=== PATIENT | female | born 1940 | race Caucasian/White ===

== ENCOUNTER → 2017-07-30 19:19 | Emergency (ER) | payer MEDICARE, OTHER ==
[~2017-07-30 19:19] MED LIST: Oxymetazoline 0.05% NASAL SPR* 15 ML BTL LEFT NARE ONE
[2017-07-30 19:25] VITALS: BP 127/69
--- NOTE | 2017-07-30 20:57 | ED ---
Throat Pain/Nasal Congestion - HPI Summary HPI Summary: 77F presents with nose bleed for a couple hours. the bleed keeps stopped and then it starts again. She keeps whipping her nose and picking at it around to EMS but she denies this. She is on blood thinners. She denies any recent infections. She denies any blood dripping down her right nostril or down her throat. it is only her left. She denies any history of nose bleeds. She denies any seasonal allergies. - History of Current Complaint Chief Complaint: EDUpperRespComplaint Time Seen by Provider: 07/30/17 19:37 - Allergies/Home Medications Allergies/Adverse Reactions: Allergies Allergy/AdvReac Type Severity Reaction Status Date / Time Acetaminophen [From Tylenol] Allergy Unknown Unknown Verified 10/14/14 10:40 Reaction Details Ezetimibe [From Vytorin] Allergy Unknown Unknown Verified 10/14/14 10:40 Reaction Details Hydrocodone [From Vicodin] Allergy Unknown Unknown Verified 10/14/14 10:40 Reaction Details Lovastatin Allergy Unknown Unknown Verified 10/14/14 10:40 Reaction Details Simvastatin [From Vytorin] Allergy Unknown Unknown Verified 10/14/14 10:40 Reaction Details Penicillins AdvReac Intermediate Dizziness Verified 10/14/14 10:40 Captopril AdvReac Mild GI Upset Verified 10/14/14 10:40 PMH/Surg Hx/FS Hx/Imm Hx Endocrine/Hematology History: Reports: Hx Anticoagulant Therapy - asa 81 mg, clodiprogel, Hx Diabetes - adult onset DM, Hx Thyroid Disease - hypothyroidism, Hx Anemia Denies: Hx Blood Disorders, Hx Blood Transfusions, Hx Systemic Lupus Erythematosus, Hx Sickle Cell Disease, Hx Unexplained Bleeding Cardiovascular History: Reports: Hx Angina, Hx Angioplasty, Hx Congestive Heart Failure, Hx Coronary Artery Disease - STENTS 3 WKS AGO, Hx Deep Vein Thrombosis , Hx Hypercholesterolemia, Hx Hypertension, Hx Valvular Heart Disease Denies: Hx Aneurysm, Hx Auto Implanted Cardiovert Defib, Hx Cardiac Arrest, Hx Cardiomegaly, Hx Congenital Heart Disease, Hx Hypotension, Hx Pacemaker/ICD, Hx Peripheral Vascular Disease, Hx Rheumatic Fever, Hx Syncope, Other Cardiovascular Problems/Disorders Respiratory History: Reports: Hx Chronic Obstructive Pulmonary Disease (COPD) - USES 2L NC AT NIGHT TIME, Hx Pneumonia - when 17, Hx Pulmonary Edema Denies: Hx Asthma, Hx Cystic Fibrosis, Hx Lung Cancer, Hx Pleural Effusion, Hx Pulmonary Embolism, Hx Seasonal Allergies, Hx Sleep Apnea GI History: Reports: Hx Gastroesophageal Reflux Disease, Hx Gastrointestinal Bleed Denies: Hx Cirrhosis, Hx Crohn's Disease, Hx Diverticulosis, Hx Gall Bladder Disease, Hx Hiatal Hernia, Hx Irritable Bowel, Hx Jaundice, Hx Obstructive Bowel , Hx Ileostomy, Hx Pyloric Stenosis, Hx Ulcer, Other GI Disorders History: Denies: Hx Acute Renal Failure, Hx Benign Prostatic Hyperplasia, Hx Chronic Renal Failure, Hx Dialysis, Hx Kidney Infection, Hx Kidney Stones, Other Problems/Disorders Musculoskeletal History: Denies: Hx Arthritis, Hx Back Problems, Hx Bursitis, Hx Congenital Bone Abnormalities, Hx Fibromyalgia, Hx Gout, Hx Orthopedic Injury, Hx Osteoporosis, Hx Scoliosis, Hx Tendonitis, Other Musculoskeletal History Sensory History: Reports: Hx Contacts or Glasses, Hx Vision Problem Denies: Hx Cataracts, Hx Eye Injury, Hx Eye Prosthesis, Hx Glaucoma, Hx Macular Degeneration, Hx Deafness, Hx Hearing Aid, Hx Hearing Problem, Other Sensory Impairments Opthamlomology History: Reports: Hx Contacts or Glasses, Hx Vision Problem Denies: Hx Cataracts, Hx Eye Injury, Hx Eye Prosthesis, Hx Glaucoma, Hx Macular Degeneration, Other Sensory Impairments Neurological History: Reports: Hx Nerve Disease - diabetic neuropathy, Other Neuro Impairments/Disorders - sciatica Denies: Hx Dementia, Hx Developmental Delay, Hx Headaches, Hx Migraine, Hx Seizures, Hx Spinal Cord Injury, Hx Transient Ischemic Attacks (TIA) Psychiatric History: Denies: Hx Anxiety, Hx Attention Deficit Hyperactivity Disorder, Hx Eating Disorder, Hx Depression, Hx Panic Disorder, Hx Post Traumatic Stress Disorder, Hx Inpatient Treatment, Hx Community Mental Health Tx, Hx Schizophrenia, Hx Bipolar Disorder, Hx of Violent Episodes Against Others, Hx Substance Abuse, Other Psychiatric Issues/Disorders - Cancer History Cancer Type, Location and Year: 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 Hx Chemotherapy: Yes Hx Radiation Therapy: Yes - Surgical History Surgery Procedure, Year, and Place: CABG RPH 2011, Hysterectomy, stents x2 2001 , stent x1 04/08, stents x3 05/09, Hx Anesthesia Reactions: No Infectious Disease History: Yes Infectious Disease History: Denies: Hx Clostridium Difficile, Hx Hepatitis, Hx Human Immunodeficiency Virus (HIV), Hx Shingles, Hx Tuberculosis, Traveled Outside the [place] in Last 30 Days - Family History Known Family History: Positive: Cardiac Disease - Social History Alcohol Use: None Substance Use Type: Reports: None Hx Tobacco Use: Yes Smoking Status (MU): Unknown if Ever Smoked Review of Systems Negative: Fever Positive: Epistaxis Negative: Chest Pain Negative: Shortness Of Breath All Other Systems Reviewed And Are Negative: Yes Physical Exam Triage Information Reviewed: Yes Vital Signs On Initial Exam: Initial Vitals Temp Pulse Resp BP Pulse Ox 97.6 F 80 20 127/69 99 07/30/17 19:23 07/30/17 19:23 07/30/17 19:23 07/30/17 19:23 07/30/17 19:23 Vital Signs Reviewed: Yes Appearance: Positive: Well-Appearing Skin: Positive: Warm, Dry Head/Face: Positive: Normal Head/Face Inspection Eyes: Positive: Normal, EOMI, JUNE, Conjunctiva Clear ENT: Positive: Pharynx normal, TMs normal, Other - nose in left nares, small abrasion seen with no active bleeding Respiratory/Lung Sounds: Positive: Clear to Auscultation, Breath Sounds Present Cardiovascular: Positive: Normal, RRR Diagnostics - Vital Signs Vital Signs Temp Pulse Resp BP Pulse Ox 07/30/17 19:23 97.6 F 80 20 127/69 99 - Laboratory Lab Statement: Any lab studies that have been ordered have been reviewed, and results considered in the medical decision making process. EENT Course/Dx - Course Course Of Treatment: 77F presents with nose bleed for a couple hours. the bleed keeps stopped and then it starts again. She keeps whipping her nose and picking at it around to EMS but she denies this. She is on blood thinners. She denies any recent infections. She denies any blood dripping down her right nostril or down her throat. it is only her left. She denies any history of nose bleeds. She denies any seasonal allergies. on exam patient is actively rubbing nose. small abrasion noted in nose with recent blood but no active bleeding. gave dose of afrin and no bleeding after hour. patient understands and agrees with plan. - Differential Diagnoses Differential Diagnoses: Epistaxis, Sinusitis, URI/Bronchitis - Diagnoses Provider Diagnoses: Epistaxis Discharge - Discharge Plan Condition: Good Disposition: HOME Patient Education Materials: Nosebleed (ED) Referrals: Ab Carter MD [Primary Care Provider] - Additional Instructions: Use humidifier or place bowls of water around room Use afrin one spray if bleed returns Place compression on area 20 mins Do not pick or rub at area If bleed continues after these steps return to ED
== END | disposition home or self-care (01) ==
LOC: ED 19:19
DX: R04.0 Epistaxis (principal); Z79.82 Long term (current) use of aspirin; E03.9 Hypothyroidism, unspecified; E11.9 Type 2 diabetes mellitus without complications; I25.10 Atherosclerotic heart disease of native coronary artery without angina pectoris; E78.00 Pure hypercholesterolemia, unspecified; Z95.1 Presence of aortocoronary bypass graft
CPT/HCPCS: 99281; A9270-GY

== ENCOUNTER 2018-02-19 05:57 | Emergency (ER) | payer MEDICARE, OTHER ==
--- NOTE | 2018-02-19 07:32 | ED ---
Adonis Lund Nikita, scribed for Kaden Hidalgo MD on 02/19/18 at 0624 . 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 EMS stated that the pt meant to take her lantus, but at 0430 this morning, the pt thinks she took 36 units of regular insulin. Initial FS at 0530 was 464; upon arrival to ED, EMS stated that 2nd FS was 248. The patient rates the pain 0/10 in severity. Symptoms aggravated by nothing. Symptoms alleviated by nothing. Patient denies CP and SOB. - History Of Current Complaint Chief Complaint: EDGeneral Hx Obtained From: Patient Onset/Duration: Sudden Onset, Lasting Minutes, Resolved Timing: Minutes Severity Currently: None Aggravating Factor(s): nothing Alleviating Factor(s): nothing Associated Signs And Symptoms: Positive: Other - the pt took too much insulin, denies CP and SOB - Allergies/Home Medications Allergies/Adverse Reactions: Allergies Allergy/AdvReac Type Severity Reaction Status Date / Time acetaminophen [From Tylenol] Allergy Unknown Verified 02/19/18 07:14 Reaction Details captopril Allergy GI Upset Verified 02/19/18 07:14 ezetimibe [From Vytorin] Allergy Unknown Verified 02/19/18 07:14 Reaction Details hydrocodone [From Vicodin] Allergy Unknown Verified 02/19/18 07:14 Reaction Details lovastatin Allergy Unknown Verified 02/19/18 07:14 Reaction Details simvastatin [From Vytorin] Allergy Unknown Verified 02/19/18 07:14 Reaction Details PMH/Surg Hx/FS Hx/Imm Hx Endocrine/Hematology History: Reports: Hx Anticoagulant Therapy - asa 81 mg, clodiprogel, Hx Diabetes - adult onset DM, Hx Thyroid Disease - hypothyroidism, Hx Anemia Denies: Hx Blood Disorders, Hx Blood Transfusions, Hx Systemic Lupus Erythematosus, Hx Sickle Cell Disease, Hx Unexplained Bleeding Cardiovascular History: Reports: Hx Angina, Hx Angioplasty, Hx Congestive Heart Failure, Hx Coronary Artery Disease - STENTS 3 WKS AGO, Hx Deep Vein Thrombosis , Hx Hypercholesterolemia, Hx Hypertension, Hx Valvular Heart Disease Denies: Hx Aneurysm, Hx Auto Implanted Cardiovert Defib, Hx Cardiac Arrest, Hx Cardiomegaly, Hx Congenital Heart Disease, Hx Hypotension, Hx Pacemaker/ICD, Hx Peripheral Vascular Disease, Hx Rheumatic Fever, Hx Syncope, Other Cardiovascular Problems/Disorders Respiratory History: Reports: Hx Chronic Obstructive Pulmonary Disease (COPD) - USES 2L NC AT NIGHT TIME, Hx Pneumonia - when 17, Hx Pulmonary Edema Denies: Hx Asthma, Hx Cystic Fibrosis, Hx Lung Cancer, Hx Pleural Effusion, Hx Pulmonary Embolism, Hx Seasonal Allergies, Hx Sleep Apnea GI History: Reports: Hx Gastroesophageal Reflux Disease, Hx Gastrointestinal Bleed Denies: Hx Cirrhosis, Hx Crohn's Disease, Hx Diverticulosis, Hx Gall Bladder Disease, Hx Hiatal Hernia, Hx Irritable Bowel, Hx Jaundice, Hx Obstructive Bowel , Hx Ileostomy, Hx Pyloric Stenosis, Hx Ulcer, Other GI Disorders History: Denies: Hx Acute Renal Failure, Hx Benign Prostatic Hyperplasia, Hx Chronic Renal Failure, Hx Dialysis, Hx Kidney Infection, Hx Kidney Stones, Other Problems/Disorders Musculoskeletal History: Denies: Hx Arthritis, Hx Back Problems, Hx Bursitis, Hx Congenital Bone Abnormalities, Hx Fibromyalgia, Hx Gout, Hx Orthopedic Injury, Hx Osteoporosis, Hx Scoliosis, Hx Tendonitis, Other Musculoskeletal History Sensory History: Reports: Hx Contacts or Glasses, Hx Vision Problem Denies: Hx Cataracts, Hx Eye Injury, Hx Eye Prosthesis, Hx Glaucoma, Hx Macular Degeneration, Hx Deafness, Hx Hearing Aid, Hx Hearing Problem, Other Sensory Impairments Opthamlomology History: Reports: Hx Contacts or Glasses, Hx Vision Problem Denies: Hx Cataracts, Hx Eye Injury, Hx Eye Prosthesis, Hx Glaucoma, Hx Macular Degeneration, Other Sensory Impairments Neurological History: Reports: Hx Nerve Disease - diabetic neuropathy, Other Neuro Impairments/Disorders - sciatica Denies: Hx Dementia, Hx Developmental Delay, Hx Headaches, Hx Migraine, Hx Seizures, Hx Spinal Cord Injury, Hx Transient Ischemic Attacks (TIA) Psychiatric History: Denies: Hx Anxiety, Hx Attention Deficit Hyperactivity Disorder, Hx Eating Disorder, Hx Depression, Hx Panic Disorder, Hx Post Traumatic Stress Disorder, Hx Inpatient Treatment, Hx Community Mental Health Tx, Hx Schizophrenia, Hx Bipolar Disorder, Hx of Violent Episodes Against Others, Hx Substance Abuse, Other Psychiatric Issues/Disorders - Cancer History Cancer Type, Location and Year: 2001: Non Hodgkins Lymphoma Hx Chemotherapy: Yes Hx Radiation Therapy: Yes - Surgical History Surgery Procedure, Year, and Place: CABG RPH 2011, Hysterectomy, stents x2 2001 , stent x1 04/08, stents x3 05/09, Hx Anesthesia Reactions: No Infectious Disease History: No Infectious Disease History: Denies: Hx Clostridium Difficile, Hx Hepatitis, Hx Human Immunodeficiency Virus (HIV), Hx Shingles, Hx Tuberculosis, Traveled Outside the [place] in Last 30 Days - Family History Known Family History: Positive: Cardiac Disease - Social History Alcohol Use: None Substance Use Type: Reports: None Hx Tobacco Use: Yes Smoking Status (MU): Unknown if Ever Smoked Review of Systems Positive: Other - took too much insulin this morning Negative: Chest Pain Negative: Shortness Of Breath All Other Systems Reviewed And Are Negative: Yes Physical Exam - Summary Physical Exam Summary: Appearance: Well-appearing, Well-nourished Skin: Warm Eyes: Normal ENT: Normal Neck: Supple, nontender Respiratory: Clear to auscultation Cardiovascular: Normal S1, S2. No murmurs. Normal distal pulses in tibial and radial bilaterally. Abdomen: Soft, nontender Musculoskeletal: Normal, Strength/ROM Intact Neurological: Normal, A&Ox3 Psychiatric: Normal General: No acute distress Triage Information Reviewed: Yes Vital Signs On Initial Exam: Initial Vitals Temp Pulse Resp BP Pulse Ox 97.7 F 78 18 129/72 96 02/19/18 06:00 02/19/18 06:00 02/19/18 06:00 02/19/18 06:00 02/19/18 06:00 Vital Signs Reviewed: Yes Diagnostics - Vital Signs Vital Signs Temp Pulse Resp BP Pulse Ox 02/19/18 06:00 97.7 F 78 18 129/72 96 - Laboratory Lab Statement: Any lab studies that have been ordered have been reviewed, and results considered in the medical decision making process. Complex Multi-Symp Course/Dx Assessment/Plan: initial fingerstick 194 at 630am, which is approx 1.5 hrs after accidental injection. Serial fingersticks pending, pt remains asymptomatic at this time and will likely be cleared for discharge after serial fingersticks over 3-4 hours and PO tolerance. Pt care signed out to AM attending Dr. Oshea. - Diagnoses Provider Diagnoses: Accidental medication error Discharge - Sign-Out/Discharge Documenting (check all that apply): Sign-Out Patient Signing out patient TO: Shabbir Oshea - Discharge Plan Condition: Stable Referrals: Ab Carter MD [Primary Care Provider] - - Billing Disposition and Condition Condition: STABLE The documentation as recorded by the Adonis torres Nikita accurately reflects the service I personally performed and the decisions made by me, Kaden Hidalgo MD.
--- NOTE | 2018-02-19 09:33 | ED ---
Andreas Lund Thomas, scribed for Shabbir Oshea MD on 02/19/18 at 0706 . Progress - Progress Note Progress Note: The patient is a sign out from Dr. Hidalgo at shift change, pending re-evaluation. Course/Dx - Course Course Of Treatment: Patient observed in ED for 5 hours after she took the regular insulin. She ate in the ED and did not become hyoglycemic. - Diagnoses Provider Diagnoses: Accidental medication error Discharge - Sign-Out/Discharge Documenting (check all that apply): Discharge, Receiving Sign-Out Receiving patient FROM: Kaden Hidalgo - Discharge Plan Condition: Stable Disposition: HOME Patient Education Materials: Hypoglycemia in a Person with Diabetes (ED) Referrals: Ab Carter MD [Primary Care Provider] - Additional Instructions: FOLLOW UP WITH YOUR DOCTOR. RETURN TO THE EMERGENCY DEPARTMENT FOR ANY WORSENING OF YOUR CONDITION OR QUESTIONS OR CONCERNS. YOUR BLOOD PRESSURE WAS ELEVATED TODAY; FOLLOW UP WITH YOUR PRIMARY CARE DOCTOR WITHIN ONE WEEK. - Billing Disposition and Condition Condition: STABLE Disposition: HOME The documentation as recorded by the Andreas torres Thomas accurately reflects the service I personally performed and the decisions made by me, Shabbir Oshea MD.
[2018-02-19 10:08] VITALS: BP 116/76
== END 2018-02-19 10:07 | disposition home or self-care (01) ==
LOC: ED 05:57
DX: E11.649 Type 2 diabetes mellitus with hypoglycemia without coma (principal); Z79.4 Long term (current) use of insulin; I25.10 Atherosclerotic heart disease of native coronary artery without angina pectoris; Z87.09 Personal history of other diseases of the respiratory system
CPT/HCPCS: 99282

== ENCOUNTER 2018-10-23 00:05 | Inpatient (IN) | payer MEDICARE, OTHER ==
--- NOTE | 2018-10-23 00:18 | ED ---
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 She states she is getting weaker every day. Pt lives at [facility]. Patient was last seen at [facility] on 10/06/18 and released on 10/22/18. - History of Current Complaint Chief Complaint: EDShortnessOfBreath Stated Complaint: SOB Time Seen by Provider: 10/23/18 00:15 Hx Obtained From: Patient Onset/Duration: Sudden Onset, Still Present Pain Intensity: 0 - Allergy/Home Medications Allergies/Adverse Reactions: Allergies Allergy/AdvReac Type Severity Reaction Status Date / Time acetaminophen [From Tylenol] Allergy GI Upset Verified 10/23/18 00:23 captopril Allergy GI Upset Verified 10/23/18 00:23 ezetimibe [From Vytorin] Allergy Unknown Verified 10/23/18 00:23 Reaction Details hydrocodone [From Vicodin] Allergy Unknown Verified 10/23/18 00:23 Reaction Details lovastatin Allergy Unknown Verified 10/23/18 00:23 Reaction Details morphine Allergy Altered Verified 10/23/18 00:50 Mental Status simvastatin [From Vytorin] Allergy Unknown Verified 10/23/18 00:23 Reaction Details PMH/Surg Hx/FS Hx/Imm Hx Previously Healthy: No Endocrine/Hematology History: Reports: Hx Anticoagulant Therapy - asa 81 mg, clodiprogel, Hx Diabetes - DM II, Hx Thyroid Disease - hypothyroidism, Hx Anemia Denies: Hx Blood Disorders, Hx Blood Transfusions, Hx Systemic Lupus Erythematosus, Hx Sickle Cell Disease, Hx Unexplained Bleeding Cardiovascular History: Reports: Hx Angina, Hx Angioplasty, Hx Congestive Heart Failure, Hx Coronary Artery Disease - STENTS 3 WKS AGO, Hx Deep Vein Thrombosis , Hx Hypercholesterolemia, Hx Hypertension, Hx Valvular Heart Disease Denies: Hx Aneurysm, Hx Auto Implanted Cardiovert Defib, Hx Cardiac Arrest, Hx Cardiomegaly, Hx Congenital Heart Disease, Hx Hypotension, Hx Pacemaker/ICD, Hx Peripheral Vascular Disease, Hx Rheumatic Fever, Hx Syncope, Other Cardiovascular Problems/Disorders Respiratory History: Reports: Hx Chronic Obstructive Pulmonary Disease (COPD) - USES 2L NC AT NIGHT TIME, Hx Pneumonia - when 17, Hx Pulmonary Edema Denies: Hx Asthma, Hx Cystic Fibrosis, Hx Lung Cancer, Hx Pleural Effusion, Hx Pulmonary Embolism, Hx Seasonal Allergies, Hx Sleep Apnea GI History: Reports: Hx Gastroesophageal Reflux Disease, Hx Gastrointestinal Bleed Denies: Hx Cirrhosis, Hx Crohn's Disease, Hx Diverticulosis, Hx Gall Bladder Disease, Hx Hiatal Hernia, Hx Irritable Bowel, Hx Jaundice, Hx Obstructive Bowel , Hx Ileostomy, Hx Pyloric Stenosis, Hx Ulcer, Other GI Disorders History: Denies: Hx Acute Renal Failure, Hx Benign Prostatic Hyperplasia, Hx Chronic Renal Failure, Hx Dialysis, Hx Kidney Infection, Hx Kidney Stones, Other Problems/Disorders Musculoskeletal History: Denies: Hx Arthritis, Hx Back Problems, Hx Bursitis, Hx Congenital Bone Abnormalities, Hx Fibromyalgia, Hx Gout, Hx Orthopedic Injury, Hx Osteoporosis, Hx Scoliosis, Hx Tendonitis, Other Musculoskeletal History Sensory History: Reports: Hx Contacts or Glasses, Hx Vision Problem Denies: Hx Cataracts, Hx Eye Injury, Hx Eye Prosthesis, Hx Glaucoma, Hx Macular Degeneration, Hx Deafness, Hx Hearing Aid, Hx Hearing Problem, Other Sensory Impairments Opthamlomology History: Reports: Hx Contacts or Glasses, Hx Vision Problem Denies: Hx Cataracts, Hx Eye Injury, Hx Eye Prosthesis, Hx Glaucoma, Hx Macular Degeneration, Other Sensory Impairments Neurological History: Reports: Hx Nerve Disease - diabetic neuropathy, Other Neuro Impairments/Disorders - sciatica Denies: Hx Dementia, Hx Developmental Delay, Hx Headaches, Hx Migraine, Hx Seizures, Hx Spinal Cord Injury, Hx Transient Ischemic Attacks (TIA) Psychiatric History: Denies: Hx Anxiety, Hx Attention Deficit Hyperactivity Disorder, Hx Eating Disorder, Hx Depression, Hx Panic Disorder, Hx Post Traumatic Stress Disorder, Hx Inpatient Treatment, Hx Community Mental Health Tx, Hx Schizophrenia, Hx Bipolar Disorder, Hx of Violent Episodes Against Others, Hx Substance Abuse, Other Psychiatric Issues/Disorders - Cancer History Cancer Type, Location and Year: 2001: Non Hodgkins Lymphoma Hx Chemotherapy: Yes Hx Radiation Therapy: Yes - Surgical History Surgery Procedure, Year, and Place: CABG RPH 2011, Hysterectomy, stents x2 2001 , stent x1 04/08, stents x3 05/09, Hx Anesthesia Reactions: No Infectious Disease History: No Infectious Disease History: Denies: Hx Clostridium Difficile, Hx Hepatitis, Hx Human Immunodeficiency Virus (HIV), Hx Shingles, Hx Tuberculosis, Traveled Outside the [place] in Last 30 Days - Family History Known Family History: Positive: Cardiac Disease - Social History Occupation: Retired Lives: [facility] Alcohol Use: None Hx Substance Use: No Substance Use Type: Reports: None Hx Tobacco Use: Yes Smoking Status (MU): Unknown if Ever Smoked Review of Systems Negative: Fever Positive: Shortness Of Breath Positive: Weakness All Other Systems Reviewed And Are Negative: Yes Physical Exam - Summary Physical Exam Summary: Appearance: Well-appearing, Well-nourished, lying in bed comfortably. Morbid obesity. Diffuse anasarca. Skin: Warm, dry, no obvious rash, frail skin with multiple contusions Eyes: sclera anicteric, no conjunctival pallor ENT: mucous membranes moist, pharynx appears normal Neck: Supple, nontender Respiratory: Crackles, mild respiratory distress Cardiovascular: Normal S1, S2. No murmurs. Normal distal pulses in tibial and radial bilaterally. Abdomen: Soft, nontender, normal active bowel sounds present Musculoskeletal: Normal, Strength/ROM Intact Neurological: A&Ox3, awake and alert, mentation is normal, speech is fluent and appropriate Psychiatric: affect is normal, does not appear anxious or depressed Triage Information Reviewed: Yes Vital Signs On Initial Exam: Initial Vitals Temp Pulse Resp BP Pulse Ox 98.0 F 80 30 116/73 97 10/23/18 00:12 10/23/18 00:12 10/23/18 00:12 10/23/18 00:12 10/23/18 00:12 Vital Signs Reviewed: Yes Diagnostics - Vital Signs Vital Signs Temp Pulse Resp BP Pulse Ox 10/23/18 00:12 98.0 F 80 30 116/73 97 - Laboratory Result Diagrams: 10/23/18 00:36 10/23/18 00:36 Lab Statement: Any lab studies that have been ordered have been reviewed, and results considered in the medical decision making process. - Radiology CXR Radiology Interpretation Completed By: ED Physician Summary of Radiographic Findings: Mild interstitial edema, no change from prior. - EKG 0038 Cardiac Rate: NL - 80bpm Summary of EKG Findings: Atrial sense ventricular paced complexes. No further analysis attempted due to paced rhythm. 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 She states she is getting weaker every day. Pt lives at [facility]. Patient was last seen at [facility] on and released on 10/22/18. EKG shows atrial sense ventricular-paced complexes at 80 bpm. CXR shows mild interstitial edema that is unchanged from prior. Consulted with Dr. Bush, hospitalist, who will admit patient. - Diagnoses Provider Diagnoses: Chronic respiratory failure, End stage congestive heart failure - Physician Notifications Discussed Care Of Patient With: Sandie Bush - hospitalist Time Discussed With Above Provider: 02:33 Instructed by Provider To: Admit As Inpatient Discharge - Sign-Out/Discharge Documenting (check all that apply): Patient Departure - ADM - Discharge Plan Condition: Guarded Disposition: ADMITTED TO [facility] - Billing Disposition and Condition Condition: GUARDED Disposition: Admitted to [facility] - Attestation Statements Document Initiated by Scribe: Yes Documenting Scribe: Rosalio Justice Provider For Whom Kirsten is Documenting (Include Credential): Dr. Darin Meraz MD Scribe Attestation: Rosalio Lund, scribed for Dr. Darin Meraz MD on 10/23/18 at 0511. Scribe Documentation Reviewed: Yes Provider Attestation: The documentation as recorded by the Rosalio torres accurately reflects the service I personally performed and the decisions made by me, Dr. Darin Meraz MD
[2018-10-23] MEDS ORDERED: Morphine VIAL* 4 MG/ML VIAL (1 ml vial) IV ONE (00:25)
[2018-10-23] MEDS ORDERED: Nitroglycerin 2% OINT* 1 GM PAK TOPICAL ONE (00:25)
[2018-10-23 00:44] LABS: ABS Basophils 0.1 10^3/ul (0-0.2); ABS Eosinophils 0.2 10^3/ul (0-0.6); ABS Lymphocytes 0.6 10^3/ul (1.0-4.8); ABS Monocytes 0.8 10^3/ul (0-0.8); ABS Neutrophils 7.6 10^3/ul (1.5-7.7); ABS Nucleated RBC 0 10^3/ul; Eosinophil % 2.5 %; Hematocrit 33 % (35-47); Hemoglobin 10.6 g/dl (12.0-16.0); Lymphocyte % 6.8 %; Mean Corpuscular HGB Conc 32 g/dl (31-36); Mean Corpuscular Hemoglobin 29 pg (27-31); Mean Corpuscular Volume 91 fL (80-97); Mean Platelet Volume 7.6 fL (7.4-10.4); Nucleated Red Blood Cells % 0.1; Platelet Count 283 10^3/ul (150-450); Red Blood Count 3.67 10^6/ul (4.00-5.40); Red Cell Distribution Width 17 % (10.5-15); White Blood Count 9.3 10^3/ul (3.5-10.8)
[2018-10-23 01:03] LABS: EGFR Non-African American 30.4 (>60)
[2018-10-23] MEDS ORDERED: Furosemide IV* 10 MG/ML VIAL (40 MG) IV ONE (01:12)
[2018-10-23] MEDS ORDERED: Senna TAB PO PRN (02:56)
[2018-10-23] MEDS ORDERED: Al Hydrox/Mg Hydrox/Simet LIQ* 30 ML UDC PO PRN (02:56)
[2018-10-23] MEDS ORDERED: Docusate CAP* 100 MG PO PRN (02:56)
[2018-10-23] MEDS ORDERED: Ondansetron INJ* 2 MG/ML VIAL IV PRN (02:56)
[2018-10-23] MEDS ORDERED: Dextrose 50% Syringe 50 ML* 25 GM/50 ML SYRINGE IV PUSH PRN (03:21)
[2018-10-23] MEDS ORDERED: Saline NASAL SPRAY 0.65%* BTL BOTH NARES PRN (03:21)
[2018-10-23] MEDS: Levothyroxine TAB* 75 MCG TAB PO SCH (05:33)
[2018-10-23] MEDS: Omeprazole CAP* 20 MG PO SCH (05:33)
[2018-10-23] MEDS: Insulin LISPRO* 1 UNITS UNIT SUBCUT SCH ×2 (10:53→12:04)
--- NOTE | 2018-10-23 13:12 | PN ---
Subjective Date of Service: 10/23/18 Interval History: HOSPITALIST PROGRESS NOTE Patient seen and examined at bedside. Care reviewed and d/w Stanley June RN. She feels a little better today. Chest pressure is resolved, but she still feels dyspneic with minimal exertion, even on Vaportherm. Family History: Unchanged from Admission Social History: Unchanged from Admission Past Medical History: Unchanged from Admission Objective Active Medications: Al Hydrox/Mg Hydrox/Simethicone (Maalox Plus*) 30 ml PO Q6H PRN PRN Reason: INDIGESTION Dextrose (D50w Syringe 50 Ml*) 12.5 gm IV PUSH .FOR FS < 60 - SS PRN PRN Reason: FS < 60 Docusate Sodium (Colace Cap*) 100 mg PO BID PRN PRN Reason: CONSTIPATION Levothyroxine Sodium (Synthroid Tab*) 75 mcg PO DAILY@0600 [facility] Last Admin: 10/23/18 05:33 Dose: 75 mcg Morphine Sulfate (Morphine Oral Concentrate*) 5 mg SL Q2H PRN PRN Reason: Pain/Dyspnea RR>24 Omeprazole (Prilosec Cap*) 20 mg PO DAILY@0600 [facility] Last Admin: 10/23/18 05:33 Dose: 20 mg Ondansetron HCl (Zofran Inj*) 4 mg IV Q4H PRN PRN Reason: NAUSEA/VOMITING Senna (Senokot Tab*) 1 tab PO BID PRN PRN Reason: CONSTIPATION Sodium Chloride (Sodium Chloride 0.65% Nasal [place]*) 1 spray BOTH NARES Q4H PRN PRN Reason: dryness Vital Signs - 8 hr 10/23/18 10/23/18 10/23/18 06:00 06:01 06:29 Temperature Pulse Rate 80 80 80 Respiratory 18 19 20 Rate Blood Pressure 94/51 105/53 (mmHg) O2 Sat by Pulse 98 99 98 Oximetry 10/23/18 10/23/18 10/23/18 07:00 07:01 08:00 Temperature 96.5 F Pulse Rate 80 80 80 Respiratory 17 23 22 Rate Blood Pressure 108/57 108/63 (mmHg) O2 Sat by Pulse 99 98 100 Oximetry 10/23/18 10/23/18 10/23/18 08:01 09:00 09:01 Temperature Pulse Rate 80 80 80 Respiratory 22 24 21 Rate Blood Pressure 100/55 (mmHg) O2 Sat by Pulse 99 99 98 Oximetry 10/23/18 10/23/18 10/23/18 10:00 10:01 11:00 Temperature Pulse Rate 80 80 80 Respiratory 22 18 32 Rate Blood Pressure 100/52 96/74 (mmHg) O2 Sat by Pulse 98 98 99 Oximetry 10/23/18 12:00 Temperature 96.8 F Pulse Rate Respiratory Rate Blood Pressure (mmHg) O2 Sat by Pulse Oximetry Oxygen Devices in Use Now: High Flow Heated Nasal Cannula - FiO2 35% Appearance: Elderly lady lying in bed in NAD Eyes: No Scleral Icterus Ears/Nose/Mouth/Throat: Mucous Membranes Moist Neck: Trachea Midline Respiratory: Symmetrical Chest Expansion and Respiratory Effort, - - BS+ bilaterally with bibasilar crackles Cardiovascular: RRR - Normal S1 and S2 Extremities: - - Bilateral LE edema Neurological: Alert and Oriented x 3, NL Muscle Strength and Tone Result Diagrams: 10/23/18 00:36 10/23/18 00:36 Assess/Plan/Problems-Billing Assessment: Mrs Alexis is 78yo F with PMH of type 2 DM, CAD s/p CABG, s/p ICD, HTN, GERD, Non Hodgkin's lymphoma s/p chemo and radiation, hypothyroidism, HLD, obesity, moderate to severe pulmonary HTN, recent admission for acute systolic CHF exacerbation, who returns to ED <24h after discharge with worsening dyspnea. - Patient Problems (1) Acute on chronic respiratory failure with hypoxemia Comment: - Secondary to end stage CHF. - Now requiring Vapotherm. (2) Acute on chronic systolic (congestive) heart failure Comment: - Severe CMP with EF 20-25%. - End stage CHF - she stayed in the hospital for 2 weeks for optmization and decompensated in less than 24h after discharge. - She does not want to pursue any more aggressive therapies. - Plan is for Hospice at the [facility] residence. - Continue comfort care only measures. - Appreciate cardiology consult. - Plan to continue aggressive diuresis with metolazone and toresmide now. - Continue to wrap LE to mobilize fluid and elevate as much as possible - Continue digoxin. Continue lisinopril, recommend resuming metoprolol when BP will allow. (3) DVT prophylaxis Comment: - Goal now is for comfort only. (4) DNR (do not resuscitate) Status and Disposition: Inpatient for comfort care. Awaiting bed at the [facility]. Will transfer out of ICU if able to titrate supplemental O2 down.
[2018-10-23] MEDS ORDERED: Atropine 1% (ORAL/SL)* 15 ML BTL SL PRN (13:17)
[2018-10-23] MEDS ORDERED: LORazepam TAB(*) 0.5 MG PO PRN (13:17)
[2018-10-23] MEDS: Morphine ORAL CONCENTRATE* 5 MG/0.25 ML ORAL.SYRIN SL PRN ×4 (13:23→23:44)
--- NOTE | 2018-10-23 13:51 | HP ---
CC: [facility].* HISTORY AND PHYSICAL: DATE OF ADMISSION: 10/23/18. TIME OF EVALUATION: 0300. PRIMARY CARE PHYSICIAN: [facility]. CHIEF COMPLAINT: Shortness of breath. HISTORY OF PRESENT ILLNESS: This is a 78-year-old female with a past medical history of congestive heart failure with an EF of 20%, a oaflyrql-oq-poigzg pulmonary hypertension and CKD, who presents to the emergency room from [facility] after just being discharged on the for a prolonged hospitalization secondary to lower extremity cellulitis with chronic lower extremity edema and acute on chronic congestive heart failure. The patient states her legs were sore; however, her breathing had been better when she was discharged back to the correction on the 22 of October. The patient was complaining of shortness of breath. She was found to be tachypneic and hypoxic and she was brought to the emergency room for further evaluation. The patient denies any chest pain. She states her legs are sore. No cough. No URI symptoms. No nausea, vomiting. No diarrhea. No abdominal pain. She states she has had an increase in urinary frequency as she states they have been trying to take the fluid off. She has been concerned about getting weaker and weaker and worsening respiratory distress. We talked in length about end-of-life decision making. She states she does not want to go back to [facility] because they were mean to her and no one would check her blood sugar when she asked them to. We discussed her congestive heart failure, her pulmonary hypertension, and renal failure and she states that she is ready to pass away. We discussed her MOLST form and she wishes to be a DNR/DNI. We discussed going to the hospice residence, that is an option for her and she is interested in going there, but she would like to wait until the morning, so that she can say goodbye to her son. Her son just flown from [place] and she wants to say goodbye to her friends before becoming complete comfort measures only. In the emergency room, the patient had labs and imaging. She was found to be tachypneic. She was given Lasix 40 mg and an inch nitro paste and referred to the hospitalist service for further evaluation. PAST MEDICAL HISTORY: 1. Prolonged admission from October 06 to October 22 for cellulitis and QT compensated congestive heart failure. 2. Chronic lower extremity edema. 3. Morbid obesity. 4. Chronic systolic congestive heart failure, EF 20% to 25%. 5. Wcrlgosh-jq-puqemv pulmonary hypertension. 6. Type 2 diabetes. 7. History of coronary artery disease status post coronary artery bypass graft , status post AICD and pacemaker placement. 8. Hypertension. 9. GERD. 10. History of non-Hodgkin's lymphoma, status post radiation chemotherapy. 11. Hypothyroidism. 12. Hyperlipidemia. 13. CKD, stage 3. MEDICATIONS: On discharge: 1. Ticagrelor 90 mg p.o. b.i.d. 2. Nasal saline spray q.2 hours as needed. 3. Nitro sublingual q.5 minutes as needed. 4. Magnesium oxide 400 mg p.o. daily. 5. Levothyroxine 25 mcg daily. 6. Calcium carbonate with vitamin D one tablet p.o. daily. 7. Atorvastatin 80 mg daily. 8. Aspirin 81 mg daily. 9. Warfarin 1 mg alternating with 0.5 mg every other day. 10. Torsemide 20 mg p.o. daily. 11. Pantoprazole 40 mg daily. 12. Metolazone 5 mg daily. 13. Lisinopril 2.5 mg daily. 14. Lispro q.a.c. and Lantus 6 units at bedtime. 15. Digoxin 0.125 mg p.o. every other day. ALLERGIES: ACETAMINOPHEN, CAPTOPRIL, EZETIMIBE, HYDROCODONE, LOVASTATIN, MORPHINE, and SIMVASTATIN. FAMILY HISTORY: Reviewed and noncontributory. SOCIAL HISTORY: The patent has been residing at [facility]. She is bedbound. Her son is also a resident at [facility] who has Down syndrome. Her other son, Carlitos is her healthcare proxy, just flown from [place]. Quit smoking 7 years ago. No alcohol use. No illicit drug use. Code status, we will update her MOLST form to confirm she is a DNR/DNI. REVIEW OF SYSTEMS: A 14-point of review of systems as mentioned in the HPI, otherwise negative. PHYSICAL EXAMINATION GENERAL: The patient is tachypneic, ill appearing. VITALS: Temp 98, pulse rate 80, respiratory rate 36, oxygen saturation 99% on 4 L, blood pressure 95 /61. HEENT: Head normocephalic. Pupils are equal and reactive. Anicteric. Oropharynx: Mucous membranes are dry. NECK: Supple. No adenopathy. RESPIRATORY: Poor aeration. Bilateral rales. Tachypnea. Increased work of breathing. CARDIAC: Regular rate and rhythm. Soft systolic murmur heard throughout. ABDOMEN: Soft, nontender, and nondistended. EXTREMITIES: +2 pretibial edema. Lower leg erythema with bandages on her lower extremities, distal pulses. NEUROLOGIC: Alert and oriented x3. No gross focal neurological deficits. DIAGNOSTIC STUDIES/LAB DATA: White count 9.3, hemoglobin 10.6, hematocrit 33, platelets 283. INR on 10/22 was 2.07. Sodium 135, potassium 5.3, chloride 95, bicarb 37, BUN 70, creatinine 1.63, glucose 176. Troponin 0.06. Albumin is 2.8. Radiographic data shows mild pulmonary interstitial markings, slight improvement from prior chest x-ray. EKG shows atrial sensed, deep paced complexes. ASSESSMENT/PLAN: This is a 78-year-old female with multiple comorbidities including chronic systolic heart failure with an ejection fraction of 20, moderate- to-severe pulmonary hypertension and worsening chronic kidney disease , who presents to the emergency room after being discharged for 1 day to [facility] with respiratory distress. 1. Acute hypoxic respiratory failure. Assessment: This is likely multifactorial. I do suspect she has been overdiuresed based on her labs and her physical exam. This is likely secondary to her worsening pulmonary hypertension. Also on differential is a PE. I discussed with her at length her code status and her grim prognosis with her multiple comorbidities that she is eligible for hospice and her life expectancy is likely less than 1 month and concerned that she may not survive to discharge. The patient is interested in comfort care measures. She would like to go to the hospice residence. She does not want to return to [facility] as they were mean to her. She does not tolerate morphine as this makes her crazy. So, this would not be a good option for air hunger at this point. We discussed putting her on high flow until the morning until she is able to say goodbye to her family and see her son and discuss discharge to the hospice residence if she is a good candidate and they have beds available. Plan: We will place her in the ICU on high flow. We will place a social work consult. I did contact Dr. Sylvester regarding possible placement to the residence. I feel that she is overdiuresed, going to hold her torsemide and metolazone at this time. We will also continue to hold her anticoagulation and her antiplatelet agent at this time as well as her digoxin and her atorvastatin and lisinopril. Discussed that they will need to contact her [employer] to have this turned off. She was not yet ready to have the magnet placed this evening. 2. Acute on chronic CKD and worsening renal failure likely in the setting of being overdiuresed. 3. Diabetes. We will place her on a Lispro sliding scale. 4. Hypothyroidism. We will resume her Synthroid. 5. GERD. We will resume her pantoprazole. 6. Fluids, electrolytes, and nutrition. I placed her on a regular diet. 7. DVT prophylaxis. The patient scores high risk. This is in the setting of comfort care measures. We will hold off on anticoagulation and she had an INR of 2 from her Coumadin on the . 8. Code status. DNR/DNI. MOLST form will be completed. PATIENT TIME: Greater than 60 minutes was spent doing the history and physical , a lifetime of critical care, end-of-life decision making, and more than half of the time was spent in direct patient contact. [id number]/CPS #: [id number] ENRIQUE
--- NOTE | 2018-10-24 01:58 | PN ---
Progress Note - Progress Note Date of Service: 10/24/18 Note: Paged because patient states she no longer wants to go to residence. She is falling asleep during our encounter. Reminded her of our conversation. She states she wants everything to be natural. I discussed the residence would be the most natural peaceful way to . She then became agreeable. Concern the morphine is making her confused. She is not tachypneic at this time and appears comfortable. Will d/c morphine for now.
[2018-10-24] MEDS: Levothyroxine TAB* 75 MCG TAB PO SCH (06:15)
[2018-10-24] MEDS: Omeprazole CAP* 20 MG PO SCH (06:15)
[2018-10-24 08:07] VITALS: BP 147/106
--- NOTE | 2018-10-24 14:40 | DS ---
CC: Dr. Carter * DISCHARGE SUMMARY: DATE OF ADMISSION: 10/23/18 DATE OF DISCHARGE: 10/24/18 PRIMARY CARE PROVIDER: Dr. Carter. DISCHARGE DIAGNOSIS: End-stage congestive heart failure. SECONDARY DIAGNOSES: 1. Systolic congestive heart failure with ejection fraction 20% to 25%. 2. Morbid obesity. 3. Ufyrdzgw-mj-prvqfo pulmonary hypertension. 4. Type 2 diabetes. 5. Coronary artery disease status post coronary artery bypass grafting, status post ICD/pacer placement. 6. Hypertension. 7. Gastroesophageal reflux disease. 8. History of non-Hodgkin's lymphoma status post radiation chemo. 9. Hypothyroidism. 10. Hyperlipidemia. 11. Chronic kidney disease stage 3. MEDICATION LIST: 1. Maalox 30 mL p.o. q.6 hours p.r.n. indigestion. 2. Atropine 1% 2 drops sublingual q.12 hours p.r.n. terminal secretions. 3. Colace 100 mg p.o. b.i.d. p.r.n. constipation. 4. Levothyroxine 75 mcg p.o. daily. 5. Lorazepam 0.5 mg p.o. q.4 hours p.r.n. anxiety. 6. Morphine oral concentrate 5 mg sublingual q.1 hour p.r.n. pain, tachypnea greater than 24 breaths per minute. 7. Omeprazole 20 mg p.o. daily. HOSPITAL COURSE: Mrs. High is a 78-year-old lady with a past medical history as stated above who had a prolonged hospital [place] [facility] [place] to 10/22/18 with acute on chronic systolic congestive heart failure and lower extremity cellulitis. The patient was discharged to [facility] and unfortunately returned to the emergency room less than 24 hours later with complaints of shortness of breath. For more details about her presentation, I refer you to her history and physical. Initially, she required Vapotherm and was admitted to intensive care unit. After discussions about code status and her growing prognosis with multiple comorbidities, the patient was interested in comfort care measures and arrangements were made for her to be discharged to the [facility] on . At this time, the patient is requiring 10 L of oxygen. Her medication list was edited to keep only medications that would add to her comfort and her diet has been liberalized. The patient will be discharged to [facility] today. PHYSICAL EXAMINATION: Vital Signs: Temperature 96.7, heart rate is 80, respiratory rate is 25, oxygen saturation is 100% on 10 L, blood pressure is 106 /61. General: The patient is a pleasant elderly lady, lying in bed, in no acute distress. CVS: Normal S1, S2. Regular rate and rhythm. Chest: Breath sounds present bilaterally with bibasilar crackles. Extremities: Bilateral lower extremity edema. Neuro: She is alert and oriented x3, able to move all 4 extremities. DIET: Regular diet for comfort. ACTIVITY: As tolerated. [facility] Please keep in mind, this is a summarized version of this patient's hospital stay. If you need more information, please feel free to call me at [phone] or please obtain the full medical records. TIME SPENT: Approximately 45 minutes was spent to complete this discharge. [id number]/CPS #: [id number] ENRIQUE
== END 2018-10-24 10:20 | disposition hospice, inpatient (51) | DRG 291 ==
LOC: ED 00:05 → ICU 02:56 → MED 20:26
PROVIDERS: ADMIT Pediatrics; ATTEND Internal Medicine
PROC: 5A09357 Assistance with Respiratory Ventilation, Less than 24 Consecutive Hours, Continuous Positive Airway Pressure (ICD-10-PCS; principal; 2018-10-23)
DX: I13.0 Hypertensive heart and chronic kidney disease with heart failure and stage 1 through stage 4 chronic kidney disease, or unspecified chronic kidney disease (principal); I50.23 Acute on chronic systolic (congestive) heart failure; J96.21 Acute and chronic respiratory failure with hypoxia; N17.9 Acute kidney failure, unspecified; I50.84 End stage heart failure; E11.22 Type 2 diabetes mellitus with diabetic chronic kidney disease; I27.20 Pulmonary hypertension, unspecified; E66.01 Morbid (severe) obesity due to excess calories; N18.3 Chronic kidney disease, stage 3 (moderate); Z95.1 Presence of aortocoronary bypass graft; Z79.01 Long term (current) use of anticoagulants; Z66 Do not resuscitate; I25.10 Atherosclerotic heart disease of native coronary artery without angina pectoris; K21.9 Gastro-esophageal reflux disease without esophagitis; E03.9 Hypothyroidism, unspecified; E78.5 Hyperlipidemia, unspecified; Z95.810 Presence of automatic (implantable) cardiac defibrillator; Z68.37 Body mass index [BMI] 37.0-37.9, adult; Z85.72 Personal history of non-Hodgkin lymphomas; Z79.82 Long term (current) use of aspirin; Z79.899 Other long term (current) drug therapy; Z88.6 Allergy status to analgesic agent; Z88.5 Allergy status to narcotic agent; Z91.09 Other allergy status, other than to drugs and biological substances; Z87.891 Personal history of nicotine dependence
CPT/HCPCS: 36415; 71045; 80053; 80162; 84484; 85025; 87641; 93005; 99285; A9270-GY; J1940; J2270